=== PATIENT | female | born 1955 | race Caucasian/White ===

== ENCOUNTER 2016-09-10 21:38 | Emergency (ER) | payer MEDICARE, MEDICAID ==
[2016-09-10] MEDS ORDERED: SODIUM CHLORIDE 0.9% 1,000 ML IV ONE ×2 (22:04→22:06)
[2016-09-10] MEDS ORDERED: KETOROLAC 60 MG/2 ML VIAL IVP STA (22:04)
[2016-09-10] MEDS ORDERED: MORPHINE 2 MG/ML SYRINGE IVP STA (22:04)
[2016-09-10] MEDS ORDERED: MORPHINE 2 MG/ML SYRINGE ONE (22:06)
[2016-09-10] MEDS ORDERED: KETOROLAC 30 MG/ML VIAL ONE (22:06)
[2016-09-10 22:11] LABS: PH,URINE 5.5 PH (5.0-7.5)
[2016-09-10 22:16] LABS: BILIRUBIN,URINE MODERATE (NEGATIVE); UA CHARGE (STRIP ONLY) YES; UR CULTURE IF IND NOT INDICATED
--- NOTE | 2016-09-10 22:34 | ED Physician Documentation ---
History of Present Illness - Stated complaint Stated Complaint: ABD PX, BACK PX - Chief complaint Chief Complaint: Abd Pain - History obtained from History obtained from: Patient - History of Present Illness Timing: Today Pain level max: 8 Pain level now: 8 Quality: aching, dull pain Improved by: nothing Worsened by: nothing - Additonal information Additional information: Patient is a 61-year-old female who presents to the emergency department with right flank pain that radiates to the right groin. Has had several kidney stones in the past and states that this feels similar. Denies any fevers or vomiting. She has had to have lithotripsy in the past. Review of Systems Constitutional: denies: Fever Nose: denies: Rhinorrhea / runny nose, Congestion Cardiac: denies: Chest pain / pressure Respiratory: denies: Cough GI: reports: Nausea. 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 HEENT: Cochlear implant - Present Medications Home Medications: Ambulatory Orders Medication Instructions Recorded Confirmed Atorvastatin [Lipitor] 10 mg DAILY 09/05/15 09/10/16 Cholecalciferol [Vitamin D3] 1,000 unit DAILY 09/05/15 09/10/16 Cyclobenzaprine [Flexeril] 10 mg DAILY 09/05/15 09/10/16 Etodolac [Etodolac ER] 400 mg PO DAILY 09/05/15 09/10/16 Flaxseed Oil [[place]-3 Flaxseed Oil] 1,400 mg DAILY 09/05/15 09/10/16 Losartan [Cozaar] 25 mg DAILY 09/05/15 09/10/16 Multivit-Min/Iron Fum/Folic AC 1 tab DAILY 09/05/15 09/10/16 [Shfrf-Xabdgeg-Ikgscpwy Tablet] Omeprazole [PriLOSEC] 20 mg PO DAILY 09/05/15 09/10/16 Tofacitinib Citrate [Xeljanz] 5 mg PO BID 09/05/15 09/10/16 Hydrocodone/Acetaminophen 1 - 2 each PO Q6H PRN #10 tablet 09/10/16 [Hydrocodon-Acetaminophen 5-325] - Allergies Allergies/Adverse Reactions: Allergies Allergy/AdvReac Type Severity Reaction Status Date / Time acetaminophen Allergy Unknown Verified 09/10/16 21:45 [From Darvocet-N] meperidine HCl * Allergy Unknown Verified 09/10/16 21:45 [From Demerol] Penicillins Allergy Unknown Verified 09/10/16 21:45 povidone-iodine Allergy Unknown Verified 09/10/16 21:45 [From Betadine] propoxyphene napsylate * Allergy Unknown Verified 09/10/16 21:45 [From Darvocet-N] soap [From Betadine] Allergy Unknown Verified 09/10/16 21:45 Sulfa (Sulfonamide Allergy Unknown Verified 09/10/16 21:45 Antibiotics) bandaids Allergy Unknown Uncoded 09/10/16 21:45 dermabond Allergy Unknown Uncoded 09/10/16 21:45 surgical tape Allergy Unknown Uncoded 09/10/16 21:45 - Social History Does the pt smoke?: No Smoking Status: Never smoker Does the pt have substance abuse?: No - Immunizations Immunizations are current?: Yes - POLST Patient has POLST: No PD ED PE NORMAL - Vitals Vital signs reviewed: Yes - General General: Alert and oriented X 3, No acute distress - HEENT HEENT: Moist mucous membranes - Neck Neck: Supple, no meningeal sign - Cardiac Cardiac: RRR - Respiratory Respiratory: No respiratory distress, Clear bilaterally - Abdomen Abdomen: Normal bowel sounds, Soft, Non tender, Non distended - Back Back: No CVA TTP, No spinal TTP - Derm Derm: Warm and dry - Neuro Neuro: Alert and oriented X 3 - Psych Psych: Normal mood Results - Vitals Vitals: Vital Signs - 24 hr 09/10/16 09/10/16 21:43 22:45 Temperature 36.6 C Heart Rate 95 81 Respiratory 16 16 Rate Blood Pressure 155/101 H 145/79 H O2 Saturation 98 96 Oxygen O2 Source Room air - Labs Labs: Laboratory Tests 09/10/16 09/10/16 09/10/16 21:52 22:00 22:00 WBC 8.2 RBC 4.43 Hgb 13.2 Hct 39.2 MCV 88.5 MCH 29.8 MCHC 33.6 RDW 13.8 Plt Count 251 MPV 8.1 Neut # 4.6 Lymph # 2.8 [place] # 0.5 Eos # 0.2 Baso # 0.1 Absolute Nucleated RBC 0.00 Nucleated RBCs 0.0 Sodium 140 Potassium 4.2 Chloride 105 Carbon Dioxide 24 Anion Gap 11.0 BUN 21 H Creatinine 0.9 Estimated GFR (MDRD) 63 L Glucose 136 H Calcium 9.5 Total Bilirubin 0.8 AST 57 H ALT 68 H Alkaline Phosphatase 77 Total Protein 7.9 Albumin 4.3 Globulin 3.6 Albumin/Globulin Ratio 1.2 Lipase 36 Urine Color YELLOW Urine Clarity CLEAR Urine pH 5.5 Ur Specific [place] 1.025 Urine Protein NEGATIVE Urine Glucose (UA) NEGATIVE Urine Ketones NEGATIVE Urine Occult Blood NEGATIVE Urine Nitrite NEGATIVE Urine Bilirubin MODERATE H Urine Urobilinogen 0.2 (NORMAL) Ur Leukocyte Esterase NEGATIVE Ur Microscopic Review NOT INDICATED Urine Culture Comments NOT INDICATED - Rads (name of study) CT abd/pelvis Radiology: Prelim report reviewed, EMP read contemporaneously, See rad report ( Bilateral nonobstructing renal stones. No obstructing ureteral stones or renal mass. In particular, no acute inflammation. Fatty liver. No mass. Liver is enlarged. Gallbladder is surgically absent.) PD MEDICAL DECISION MAKING - ED course Complexity details: reviewed results, re-evaluated patient, considered differential, d/w patient ED course: Patient presents to the emergency department with right flank pain consistent with her prior history of ureteral stones. Pain is well controlled here. She is tolerating p.o. without difficulty. No UTI. No appendicitis. No acute findings on CT scan to explain her pain. We will continue supportive care and follow-up with her doctor. Patient counseled regarding signs and symptoms for which I believe and urgent re-evaluation would be necessary. Patient with good understanding of and agreement to plan and is comfortable going home at this time This document was made in part using voice recognition software. While efforts are made to proofread this document, sound alike and grammatical errors may occur. Departure - Departure Disposition: 01 Home, Self Care Clinical Impression: Flank pain Condition: Good Instructions: ED Flank Pain Uncertain Cause Follow-Up: your,doctor in 3 days [Other] Prescriptions: Hydrocodone/Acetaminophen [Hydrocodon-Acetaminophen 5-325] 1 - 2 each PO Q6H PRN #10 tablet PRN Reason: pain Comments: Return if you worsen. Your CT scan does not show a visible kidney stone at this time that would be causing your symptoms. Do not drink alcohol or drive while on narcotic pain medicine. Note that many narcotic pain relievers also contain tylenol/acetaminophen. Please ensure that your total dose of acetaminophen from all sources does not exceed 3 grams (3000mg) per day. You may constipated on this medication, take a stool softener such as "Colace" twice a day while you are on it. Also recommend a gzpw-exa-idmxnpv laxative such as senna or MiraLAX any day that you do not have a bowel movement. If you received narcotic pain medication in the emergency department, do not drive or operate machinery for the next 24 hours. Your blood pressure was elevated today on check in to the emergency department. This does not mean that you have hypertension, it is a common phenomenon to check into the emergency department and have elevated blood pressure. I recommend that you see your primary care physician within the week to have it rechecked when you're feeling better.
[2016-09-10 22:35] LABS: BASOPHILS # (AUTO) 0.1 10^3/uL (0.0-0.1); BASOPHILS % (AUTO) 0.9 %; EOSINOPHILS # (AUTO) 0.2 10^3/uL (0.0-0.7); EOSINOPHILS % (AUTO) 2.5 %; HCT - HEMATOCRIT 39.2 % (37.0-47.0); HGB - HEMOGLOBIN 13.2 g/dL (12.0-16.0); LYMPHOCYTES # (AUTO) 2.8 10^3/uL (1.5-3.5); LYMPHOCYTES % (AUTO) 33.5 %; MEAN CORPUSCULAR HEMOGLOBIN 29.8 pg (27.0-31.0); MEAN CORPUSCULAR HGB CONC 33.6 g/dL (32.0-36.0); MEAN CORPUSCULAR VOLUME 88.5 fL (81.0-99.0); MEAN PLATELET VOLUME 8.1 fL (7.9-10.8); MONOCYTES # (AUTO) 0.5 10^3/uL (0.0-1.0); MONOCYTES % (AUTO) 6.5 %; NEUTROPHILS # (AUTO) 4.6 10^3/uL (1.5-6.6); NEUTROPHILS % (AUTO) 56.6 %; RED BLOOD COUNT 4.43 10^6/uL (4.20-5.40); RED CELL DISTRIBUTION WIDTH 13.8 % (12.0-15.0); UNCORRECTED WHITE BLOOD COUNT 8.2 x10^3/uL; WHITE BLOOD COUNT 8.2 x10^3/uL (4.8-10.8)
[2016-09-10 22:46] LABS: ALBUMIN/GLOBULIN RATIO 1.2 (1.0-2.2); BILIRUBIN,TOTAL 0.8 mg/dL (0.2-1.0); CALCIUM 9.5 mg/dL (8.5-10.3); CREATININE 0.9 mg/dL (0.4-1.0); POTASSIUM 4.2 mmol/L (3.5-5.0); TOTAL PROTEIN 7.9 g/dL (6.7-8.2)
--- NOTE | 2016-09-10 22:56 | CT Preliminary Report ---
Exam: CT Abdomen/Pelvis W/O IMPRESSION: 1. Bilateral nonobstructing renal stones. No obstructing ureteral stones or renal mass. 2. In particular without acute inflammation. 3. Fatty liver. No mass. Liver is enlarged. 4. Gallbladder is surgically absent. [facility] SITE ID: [id number]
[2016-09-10 23:41] VITALS: BP 135/88
--- NOTE | 2016-09-11 00:11 | CT Report ---
EXAM: CT ABDOMEN AND PELVIS (CT KUB) EXAM DATE: 09/10/2016 10:22 PM. CLINICAL HISTORY: RIght flank pain. History of renal stones. COMPARISONS: None. TECHNIQUE: Routine axial helical CT imaging was performed through the abdomen and pelvis without IV c ontrast. Reconstructions: Coronal and sagittal. In accordance with CT protocol optimization, one or more of the following dose reduction techniques w ere utilized for this exam: automated exposure control, adjustment of mA and/or KV based on patient s ize, or use of iterative reconstructive technique. FINDINGS: Lung Bases: Normal. Right Kidney/Ureter: Greater than 5 nonobstructing right-sided renal stones with the largest in the i nferior kidney measuring 7 mm. No contour deforming renal mass, hydronephrosis, or obstructing ureter al stone. Left Kidney/Ureter: Greater than 3 nonobstructing left-sided renal stones with the largest in the inf erior left kidney measuring 1.2 cm and 0.3 cm respectively. No contour deforming left renal mass, hyd ronephrosis or obstructing ureteral stone. Other Solid Organs: Fatty infiltration of the enlarged liver with geographic areas of more normal att enuation in the posterior left liver lobe. No mass or intrahepatic bile duct dilation is noted. Gallb ladder is surgically absent. Normal adrenal glands, spleen and pancreas. Gallbladder/Bile Ducts: See above. Peritoneal Cavity: No free fluid, free air or florceita adenopathy. Bowel is grossly unremarkable. There are multiple diverticula seen which most severely affect the sigmoid colon. No wall thickening or ad jacent inflammation seen. No obstruction noted. Pelvic Organs: No bladder stones or bladder wall thickening. The uterus is absent. 3.3 cm low-density cystic structure in the right ovary. Visualized portions of the left ovary are normal. No pelvic mas s or adenopathy. Vasculature: Unremarkable. Other: Patient is osteopenic. No osteoblastic or osteolytic lesions. Large cystic structures are seen at the neural foramina possibly due to Tarlov's cyst noted at S1 and S2. IMPRESSION: 1. Bilateral nonobstructing renal stones. No obstructing ureteral stones or renal mass. 2. Diverticula without acute inflammation. 3. Fatty liver. No mass. Liver is enlarged. 4. Gallbladder is surgically absent. [facility] Referring Provider Line: [phone] SITE ID: [id number]
== END 2016-09-10 23:40 | disposition home or self-care (01) ==
LOC: ED 21:38
DX: R10.30 Lower abdominal pain, unspecified (principal); R11.0 Nausea; N20.0 Calculus of kidney; Z87.442 Personal history of urinary calculi; I10 Essential (primary) hypertension; M79.7 Fibromyalgia; M06.9 Rheumatoid arthritis, unspecified
CPT/HCPCS: 36415; 74176; 80053; 81001; 81003; 83690; 85025; 87086; 96361; 96374; 96375; 99284

== ENCOUNTER 2018-03-15 19:43 | Emergency (ER) | payer MEDICARE, MEDICAID ==
--- NOTE | 2018-03-15 20:52 | ED Physician Documentation ---
History of Present Illness - Stated complaint Stated Complaint: NOT FEELING WELL - Chief complaint Chief Complaint: Abd Pain - History obtained from History obtained from: Patient, Other (uses sign language; World[employer] used to interpret) - History of Present Illness Timing: How many weeks ago (1) Improved by: no ameliorating factors Worsened by: no exacerbating factors - Additonal information Additional information: c/o 1 week of cloudy urine but no urinary frequency or urgency. she also feels "run down", fatigued. checks blood sugars daily, was 134 today. Review of Systems Constitutional: reports: Fever (yesterday "between 100 and 101"), Fatigue. denies: Chills, Myalgias, Sweats Cardiac: denies: Chest pain / pressure Respiratory: denies: Dyspnea, Cough GI: reports: Abdominal Pain (had brief episode RLQ/right flank pain yesterday, but this resolved) : reports: Other (cloudy urine). 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 HEENT: Cochlear implant - Present Medications Home Medications: Ambulatory Orders Medication Instructions Recorded Confirmed Atorvastatin [Lipitor] 10 mg DAILY 09/05/15 09/10/16 Cholecalciferol [Vitamin D3] 1,000 unit DAILY 09/05/15 09/10/16 Cyclobenzaprine [Flexeril] 10 mg DAILY 09/05/15 09/10/16 Etodolac [Etodolac ER] 400 mg PO DAILY 09/05/15 09/10/16 Flaxseed Oil [[place]-3 Flaxseed Oil] 1,400 mg DAILY 09/05/15 09/10/16 Losartan [Cozaar] 25 mg DAILY 09/05/15 09/10/16 Multivit-Min/Iron Fum/Folic AC 1 tab DAILY 09/05/15 09/10/16 [Gdhdz-Jlrowef-Wdypqlhn Tablet] Omeprazole [PriLOSEC] 20 mg PO DAILY 09/05/15 09/10/16 Tofacitinib Citrate [Xeljanz] 5 mg PO BID 05/05/16 05/11/17 Hydrocodone/Acetaminophen 1 - 2 each PO Q6H PRN #10 tablet 09/10/16 [Hydrocodon-Acetaminophen 5-325] Ciprofloxacin HCl [Cipro] 500 mg PO BID #14 tablet 03/15/18 - Allergies Allergies/Adverse Reactions: Allergies Allergy/AdvReac Type Severity Reaction Status Date / Time acetaminophen Allergy Unknown Verified 09/10/16 21:45 [From Darvocet-N] meperidine HCl * Allergy Unknown Verified 09/10/16 21:45 [From Demerol] Penicillins Allergy Unknown Verified 09/10/16 21:45 povidone-iodine Allergy Unknown Verified 09/10/16 21:45 [From Betadine] propoxyphene napsylate * Allergy Unknown Verified 09/10/16 21:45 [From Darvocet-N] soap [From Betadine] Allergy Unknown Verified 09/10/16 21:45 Sulfa (Sulfonamide Allergy Unknown Verified 09/10/16 21:45 Antibiotics) bandaids Allergy Unknown Uncoded 09/10/16 21:45 dermabond Allergy Unknown Uncoded 09/10/16 21:45 surgical tape Allergy Unknown Uncoded 09/10/16 21:45 - Social History Does the pt smoke?: No Smoking Status: Never smoker Does the pt have substance abuse?: No - Immunizations Immunizations are current?: Yes - POLST Patient has POLST: No PD ED PE NORMAL - Vitals Vital signs reviewed: Yes - General General: Alert and oriented X 3, No acute distress, Well developed/nourished - HEENT HEENT: Moist mucous membranes - Cardiac Cardiac: RRR, No murmur - Respiratory Respiratory: No respiratory distress, Clear bilaterally - Abdomen Abdomen: Soft, Non tender, Non distended - Back Back: No CVA TTP - Extremities Extremities: No edema Results - Vitals Vitals: Vital Signs - 24 hr 03/15/18 03/15/18 19:55 22:38 Temperature 37.1 C Heart Rate 100 87 Respiratory 18 16 Rate Blood Pressure 163/89 H 145/77 H O2 Saturation 97 98 Oxygen O2 Source Room air - Labs Labs: Laboratory Tests 03/15/18 03/15/18 03/15/18 20:45 21:45 21:45 WBC 8.0 RBC 4.14 L Hgb 12.5 Hct 37.2 MCV 89.9 MCH 30.2 MCHC 33.6 RDW 13.1 Plt Count 323 MPV 6.9 L Neut # (Auto) 4.9 Lymph # (Auto) 2.2 [place] # (Auto) 0.5 Eos # (Auto) 0.2 Baso # (Auto) 0.1 Absolute Nucleated RBC 0.00 Nucleated RBC % 0.1 Sodium 140 Potassium 3.8 Chloride 105 Carbon Dioxide 24 Anion Gap 11.0 BUN 21 H Creatinine 0.8 Estimated GFR (MDRD) 72 L Glucose 194 H Calcium 9.2 Total Bilirubin 0.5 AST 21 ALT 24 Alkaline Phosphatase 95 Total Protein 7.9 Albumin 3.7 Globulin 4.2 Albumin/Globulin Ratio 0.9 L Lipase 40 Urine Color LT. YELLOW Urine Clarity HAZY Urine pH 6.0 Ur Specific [place] 1.020 Urine Protein NEGATIVE Urine Glucose (UA) NEGATIVE Urine Ketones NEGATIVE Urine Occult Blood TRACE-LYSE Urine Nitrite NEGATIVE Urine Bilirubin NEGATIVE Urine Urobilinogen 0.2 (NORMAL) Ur Leukocyte Esterase MODERATE H Urine RBC 0-5 Urine WBC >25 H Urine WBC Clumps PRESENT Ur Squamous Epith Cells RARE Squamous Urine Bacteria Rare Ur Microscopic Review INDICATED Urine Culture Comments INDICATED PD MEDICAL DECISION MAKING - ED course Complexity details: reviewed results, re-evaluated patient, considered differential, d/w patient Departure - Departure Disposition: 01 Home, Self Care Clinical Impression: Urinary tract infection Condition: Good Instructions: ED UTI Cystitis Female Follow-Up: Provider,Other [Primary Care Provider] - Prescriptions: Ciprofloxacin HCl [Cipro] 500 mg PO BID #14 tablet Discharge Date/Time: 03/15/18 22:39
[2018-03-15 20:55] LABS: GLUCOSE, URINE (UA) NEGATIVE (NEGATIVE); KETONES,URINE (UA) NEGATIVE (NEGATIVE); LEUKOCYTE ESTERASE, URINE MODERATE (NEGATIVE); NITRITE,URINE NEGATIVE (NEGATIVE); OCCULT BLOOD,URINE TRACE-LYSE (NEGATIVE); PROTEIN,URINE NEGATIVE (NEGATIVE); UROBILINOGEN,URINE 0.2 (NORMAL) E.U./dL (NORMAL)
[2018-03-15 21:16] LABS: BILIRUBIN,URINE NEGATIVE (NEGATIVE); CLARITY,URINE HAZY (CLEAR); ICTOTEST,URINE NEGATIVE
[2018-03-15 21:17] LABS: BACTERIA,URINE Rare /HPF (None Seen); RBC,URINE 0-5 /HPF (0-5); SQUAMOUS EPITHELIAL CELL,UR RARE Squamous (<= Few); WBC CLUMPS,URINE PRESENT
[2018-03-15 22:02] LABS: BASOPHILS # (AUTO) 0.1 10^3/uL (0.0-0.1); BASOPHILS % (AUTO) 0.9 %; EOSINOPHILS # (AUTO) 0.2 10^3/uL (0.0-0.7); EOSINOPHILS % (AUTO) 2.7 %; HGB - HEMOGLOBIN 12.5 g/dL (12.0-16.0); LYMPHOCYTES # (AUTO) 2.2 10^3/uL (1.5-3.5); LYMPHOCYTES % (AUTO) 28.2 %; MEAN CORPUSCULAR HEMOGLOBIN 30.2 pg (27.0-31.0); MEAN CORPUSCULAR HGB CONC 33.6 g/dL (32.0-36.0); MEAN CORPUSCULAR VOLUME 89.9 fL (81.0-99.0); MEAN PLATELET VOLUME 6.9 fL (7.9-10.8); MONOCYTES # (AUTO) 0.5 10^3/uL (0.0-1.0); MONOCYTES % (AUTO) 6.2 %; NEUTROPHILS # (AUTO) 4.9 10^3/uL (1.5-6.6); PLT - PLATELET COUNT 323 10^3/uL (130-450); RED BLOOD COUNT 4.14 10^6/uL (4.20-5.40); RED CELL DISTRIBUTION WIDTH 13.1 % (12.0-15.0)
[2018-03-15 22:16] LABS: ALBUMIN 3.7 g/dL (3.2-5.5); ALBUMIN/GLOBULIN RATIO 0.9 (1.0-2.2); BILIRUBIN,TOTAL 0.5 mg/dL (0.2-1.0); CALCIUM 9.2 mg/dL (8.5-10.3); CREATININE 0.8 mg/dL (0.4-1.0); TOTAL PROTEIN 7.9 g/dL (6.7-8.2)
[2018-03-15] MEDS ORDERED: CIPROFLOXACIN 250 MG TABLET PO STA (22:31)
[2018-03-15 22:39] VITALS: BP 145/77
== END 2018-03-15 22:39 | disposition home or self-care (01) ==
LOC: ED 19:43
DX: N39.0 Urinary tract infection, site not specified (principal); I10 Essential (primary) hypertension; E78.00 Pure hypercholesterolemia, unspecified; M79.7 Fibromyalgia; M06.9 Rheumatoid arthritis, unspecified; Z96.659 Presence of unspecified artificial knee joint
CPT/HCPCS: 36415; 80053; 81001; 83690; 85025; 87086; 99283; A9270; 81003

== ENCOUNTER 2018-04-11 12:24 | Emergency (ER) | payer MEDICARE, MEDICAID ==
--- NOTE | 2018-04-11 13:30 | ED Physician Documentation ---
PD HPI FEMALE - Stated complaint Stated Complaint: SIDE PX - Chief complaint Chief Complaint: UTI - History obtained from History obtained from: Patient, Other (translation video (ASL)) - History of Present Illness Timing - onset: How many days ago (4-5 days of lower abd and some right flank pains. Has had UTI with these symptoms. Had been treated with abx few weeks ago and was improved but felt symptoms again within a week off the abx. Seen in office 5 days ago and Rx with Macrobid, and has not had any improvement with that.) Timing - duration: Days Timing - details: Gradual onset, Waxing and waning Associated symptoms: Abdominal pain, Back pain (right flank and side), Dysuria, Urinary frequency. 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 HEENT: Cochlear implant - Present Medications Home Medications: Ambulatory Orders Medication Instructions Recorded Confirmed Atorvastatin [Lipitor] 10 mg DAILY 09/05/15 09/10/16 Cholecalciferol [Vitamin D3] 1,000 unit DAILY 09/05/15 09/10/16 Cyclobenzaprine [Flexeril] 10 mg DAILY 09/05/15 09/10/16 Etodolac [Etodolac ER] 400 mg PO DAILY 09/05/15 09/10/16 Flaxseed Oil [[place]-3 Flaxseed Oil] 1,400 mg DAILY 09/05/15 09/10/16 Losartan [Cozaar] 25 mg DAILY 09/05/15 09/10/16 Multivit-Min/Iron Fum/Folic AC 1 tab DAILY 09/05/15 09/10/16 [Qcoud-Vmpubzn-Mwelydfq Tablet] Omeprazole [PriLOSEC] 20 mg PO DAILY 09/05/15 09/10/16 Hydrocodone/Acetaminophen 1 - 2 each PO Q6H PRN #10 tablet 09/10/16 [Hydrocodon-Acetaminophen 5-325] Doxycycline Hyclate 100 mg PO BID #20 capsule 04/11/18 Phenazopyridine HCl [Pyridium] 200 mg PO TID PRN #6 tablet 04/11/18 - Allergies Allergies/Adverse Reactions: Allergies Allergy/AdvReac Type Severity Reaction Status Date / Time acetaminophen Allergy Unknown Verified 04/11/18 13:24 [From Darvocet-N] meperidine HCl * Allergy Unknown Verified 04/11/18 13:24 [From Demerol] Penicillins Allergy Unknown Verified 04/11/18 13:24 povidone-iodine Allergy Unknown Verified 04/11/18 13:24 [From Betadine] propoxyphene napsylate * Allergy Unknown Verified 04/11/18 13:24 [From Darvocet-N] soap [From Betadine] Allergy Unknown Verified 04/11/18 13:24 Sulfa (Sulfonamide Allergy Unknown Verified 04/11/18 13:24 Antibiotics) bandaids Allergy Unknown Uncoded 04/11/18 13:24 dermabond Allergy Unknown Uncoded 04/11/18 13:24 surgical tape Allergy Unknown Uncoded 04/11/18 13:24 - Social History Does the pt smoke?: No Smoking Status: Never smoker Does the pt drink ETOH?: No Does the pt have substance abuse?: No - Immunizations Immunizations are current?: Yes - POLST Patient has POLST: No PD ED PE NORMAL - Vitals Vital signs reviewed: Yes - General General: Alert and oriented X 3, No acute distress, Well developed/nourished - Cardiac Cardiac: RRR, No murmur - Respiratory Respiratory: Clear bilaterally - Abdomen Abdomen: Soft, Non tender - Female Female : Deferred - Rectal Rectal: Deferred - Back Back: No CVA TTP Results - Vitals Vitals: Oxygen O2 Source Room air - Labs Labs: Microbiology 04/11/18 13:10 Urine Culture - Final Urine,Clean Catch NO AEROBIC GROWTH AT 24 HOURS Laboratory Tests 04/11/18 13:10 Urine Color YELLOW Urine Clarity CLEAR Urine pH 5.5 Ur Specific [place] 1.020 Urine Protein NEGATIVE Urine Glucose (UA) NEGATIVE Urine Ketones NEGATIVE Urine Occult Blood NEGATIVE Urine Nitrite NEGATIVE Urine Bilirubin NEGATIVE Urine Urobilinogen 0.2 (NORMAL) Ur Leukocyte Esterase TRACE H Urine RBC 0-5 Urine WBC 6-10 H Ur Squamous Epith Cells RARE Squamous Urine Crystals 0-2 Calcium Oxalate Urine Bacteria None Seen Ur Microscopic Review INDICATED Urine Culture Comments INDICATED PD MEDICAL DECISION MAKING - ED course Complexity details: reviewed results (her prior culture result was a form of staph, sensitive to most everything, so should have cleared. Not improving with Macrobid currently. Is sensitive to tetracycline on report, so will go with Doxycycline, more staph focused. ), considered differential, d/w patient Departure - Departure Disposition: 01 Home, Self Care Clinical Impression: UTI (urinary tract infection) Qualifiers: Urinary tract infection type: acute cystitis Hematuria presence: without hematuria Qualified Code(s): N30.00 - Acute cystitis without hematuria Condition: Stable Record reviewed to determine appropriate education?: Yes Instructions: ED UTI Cystitis Female Prescriptions: Doxycycline Hyclate 100 mg PO BID #20 capsule Phenazopyridine HCl [Pyridium] 200 mg PO TID PRN #6 tablet PRN Reason: dysuria Comments: Drink lots of fluids. Stop the current antibiotic. Change to doxycycline twice daily for 10 days. You can use phenazopyridine every 6 hours if needed for the discomfort of urination. Recheck if not improved over the next few days. Follow-up with your primary care in about 2 weeks to ensure your urine is all clear at that time. Discharge Date/Time: 04/11/18 15:09
[2018-04-11 14:11] LABS: GLUCOSE, URINE (UA) NEGATIVE (NEGATIVE); KETONES,URINE (UA) NEGATIVE (NEGATIVE); LEUKOCYTE ESTERASE, URINE TRACE (NEGATIVE); NITRITE,URINE NEGATIVE (NEGATIVE); OCCULT BLOOD,URINE NEGATIVE (NEGATIVE); PH,URINE 5.5 PH (5.0-7.5); PROTEIN,URINE NEGATIVE (NEGATIVE); UROBILINOGEN,URINE 0.2 (NORMAL) E.U./dL (NORMAL)
[2018-04-11 14:14] LABS: BILIRUBIN,URINE NEGATIVE (NEGATIVE); CLARITY,URINE CLEAR (CLEAR); ICTOTEST,URINE NEGATIVE
[2018-04-11 14:20] LABS: BACTERIA,URINE None Seen /HPF (None Seen); CRYSTALS,URINE 0-2 Calcium Oxalate /LPF; RBC,URINE 0-5 /HPF (0-5); SQUAMOUS EPITHELIAL CELL,UR RARE Squamous (<= Few)
[2018-04-11] MEDS ORDERED: PHENAZOPYRIDINE 100 MG TABLET PO STA (14:36)
[2018-04-11] MEDS ORDERED: DOXYCYCLINE 100 MG TABLET PO STA (14:38)
[2018-04-11 15:07] VITALS: BP 142/77
== END 2018-04-11 15:09 | disposition home or self-care (01) ==
LOC: ED 12:24
DX: N30.00 Acute cystitis without hematuria (principal); I10 Essential (primary) hypertension; E78.00 Pure hypercholesterolemia, unspecified; Z96.659 Presence of unspecified artificial knee joint
CPT/HCPCS: 81001; 87086; 99283; A9270; 81003

== ENCOUNTER 2018-04-16 13:53 | Emergency (ER) | payer MEDICARE, MEDICAID ==
[2018-04-16] MEDS ORDERED: BUPIVACAINE 0.5% PF 10 ML VIAL SUBQ STA (14:43)
[2018-04-16] MEDS ORDERED: TRIAMCINOLONE 40 MG/ML VIAL IM STA (14:43)
--- NOTE | 2018-04-16 14:46 | ED Physician Documentation ---
PD HPI BACK PAIN - Stated complaint Stated Complaint: BACK PX - Chief complaint Chief Complaint: Back Pain - History obtained from History obtained from: Patient, Friend, Other (window display designer) - History of Present Illness Timing - onset: How many days ago (3) Timing - duration: Days (3) Timing - details: Gradual onset, Still present, Waxing and waning, Still present in ED Location: Mid, Left Quality: Pain, Spasm, Sharp, Similar to prior episodes Associated symptoms: No: Fever, Weakness, Numbness, Incontinent of urine, Unable to urinate, Hematuria, Incontinent of stool Improves with: Rest, Position Worsened by: Movement Similar symptoms before: Diagnosis (back spasm) Recently seen: Emergency Dept - Additional information Additional information: 62-year-old female has developed left flank pain similar to what she has had previously with back spasm. She does have some levoscoliosis to her spine and she has pain at the upper end of her lumbar spine on the left side that she has in waves of pain. She has had this for more than 10 years and she has periodically required treatment. She indicates to the sign meat hostess that in trigger point injections have improved this and the plain muscle relaxant has not helped with this. She does not otherwise feel ill and denies any current illness. Review of Systems Constitutional: denies: Fever Eyes: denies: Decreased vision Ears: denies: Ear pain Nose: denies: Rhinorrhea / runny nose, Congestion Throat: denies: Sore throat Cardiac: denies: Chest pain / pressure, Palpitations Respiratory: denies: Dyspnea, Cough GI: denies: Abdominal Pain, Nausea, Vomiting : denies: Dysuria, Frequency Skin: denies: Rash Musculoskeletal: reports: Back pain. denies: Neck pain, Extremity pain PD PAST MEDICAL HISTORY - Past Medical History Cardiovascular: Hypertension, High cholesterol Endocrine/Autoimmune: Type 2 diabetes : Kidney stones Psych: None Musculoskeletal: Osteoarthritis, Fibromyalgia, Rheumatoid arthritis Other Past Medical History: Deaf - Past Surgical History Past Surgical History: Yes General: Appendectomy Ortho: Knee replacement /BODY LINER: section HEENT: Cochlear implant - Present Medications Home Medications: Ambulatory Orders Medication Instructions Recorded Confirmed Atorvastatin [Lipitor] 10 mg DAILY 09/05/15 09/10/16 Cholecalciferol [Vitamin D3] 1,000 unit DAILY 09/05/15 09/10/16 Cyclobenzaprine [Flexeril] 10 mg DAILY 09/05/15 09/10/16 Etodolac [Etodolac ER] 400 mg PO DAILY 09/05/15 09/10/16 Flaxseed Oil [[place]-3 Flaxseed Oil] 1,400 mg DAILY 09/05/15 09/10/16 Losartan [Cozaar] 25 mg DAILY 09/05/15 09/10/16 Multivit-Min/Iron Fum/Folic AC 1 tab DAILY 09/05/15 09/10/16 [Cplxk-Nmakoqh-Vggqwnug Tablet] Omeprazole [PriLOSEC] 20 mg PO DAILY 09/05/15 09/10/16 Cyclobenzaprine [Flexeril] 10 mg PO TID PRN #20 tablet 04/16/18 Hydrocodone/Acetaminophen 1 - 2 each PO Q6H PRN #14 tablet 04/16/18 [Hydrocodon-Acetaminophen 5-325] - Allergies Allergies/Adverse Reactions: Allergies Allergy/AdvReac Type Severity Reaction Status Date / Time acetaminophen Allergy Unknown Verified 04/16/18 14:05 [From Darvocet-N] meperidine HCl * Allergy Unknown Verified 04/16/18 14:05 [From Demerol] Penicillins Allergy Unknown Verified 04/16/18 14:05 povidone-iodine Allergy Unknown Verified 04/16/18 14:05 [From Betadine] propoxyphene napsylate * Allergy Unknown Verified 04/16/18 14:05 [From Darvocet-N] soap [From Betadine] Allergy Unknown Verified 04/16/18 14:05 Sulfa (Sulfonamide Allergy Unknown Verified 04/16/18 14:05 Antibiotics) bandaids Allergy Unknown Uncoded 04/16/18 14:05 dermabond Allergy Unknown Uncoded 04/16/18 14:05 surgical tape Allergy Unknown Uncoded 04/16/18 14:05 - Social History Does the pt smoke?: No Smoking Status: Never smoker Does the pt drink ETOH?: No Does the pt have substance abuse?: No - Immunizations Immunizations are current?: Yes - POLST Patient has POLST: No PD ED PE NORMAL - Vitals Vital signs reviewed: Yes (tachy and hypertensive ) - General General: No acute distress, Well developed/nourished - HEENT HEENT: Atraumatic, PERRL, EOMI - Neck Neck: Supple, no meningeal sign, No bony TTP - Cardiac Cardiac: RRR, No murmur - Respiratory Respiratory: No respiratory distress, Clear bilaterally - Abdomen Abdomen: Soft, Non tender - Back Back: No CVA TTP, No spinal TTP, Other (There is specific tenderness to the upper lumbar or lower thoracic spine at the T11-L1 area in the paraspinous muscles to a specific area. The surrounding area appears red from a heating pack. ) - Derm Derm: Normal color, Warm and dry, No rash - Extremities Extremities: No deformity, No edema - Neuro Neuro: No motor deficit, No sensory deficit, Other (The patient is deaf and ronald ds lips and signs well ) Eye Opening: Spontaneous Motor: Obeys Commands Verbal: Oriented GCS Score: 15 - Psych Psych: Normal mood, Normal affect Results - Vitals Vitals: Vital Signs - 24 hr 04/16/18 14:00 Temperature 37 C Heart Rate 102 H Respiratory 12 Rate Blood Pressure 138/80 H O2 Saturation 96 Oxygen O2 Source Room air Procedures - General procedure General procedure: Trigger point injection:. After preparation of the skin with chlorhexidine the specific area of spasm is identified by palpation and the area is injected and fanned process with 6 mL's of a mixture of 9 mL's of bupivacaine and 1 mL of Kenalog 40 mg/mL. The injection provides relief to the patient. PD MEDICAL DECISION MAKING - ED course Complexity details: reviewed old records, considered differential, d/w patient, d/w family ED course: 62-year-old female with back spasm is given an injection of Kenalog and bupivacaine as a trigger point injection to the site of pain with some relief to the patient. I discussed with her through the sign meat hostess that I recommend not using the heating pack and I will prescribe some hydrocodone and Flexeril for the patient to use as needed. Departure - Departure Disposition: 01 Home, Self Care Clinical Impression: Back spasm Condition: Stable Instructions: ED Spasm Back No Trauma Follow-Up: Your, doctor [Other] Prescriptions: Cyclobenzaprine [Flexeril] 10 mg PO TID PRN #20 tablet PRN Reason: Spasms Hydrocodone/Acetaminophen [Hydrocodon-Acetaminophen 5-325] 1 - 2 each PO Q6H PRN #14 tablet PRN Reason: pain
[2018-04-16 15:15] VITALS: BP 151/90
== END 2018-04-16 15:16 | disposition home or self-care (01) ==
LOC: ED 13:53
DX: M62.830 Muscle spasm of back (principal); E11.9 Type 2 diabetes mellitus without complications; E78.00 Pure hypercholesterolemia, unspecified; I10 Essential (primary) hypertension; Z96.659 Presence of unspecified artificial knee joint; M79.7 Fibromyalgia; M06.9 Rheumatoid arthritis, unspecified
CPT/HCPCS: 20552; 99283

== ENCOUNTER 2018-07-06 13:17 | Emergency (ER) | payer MEDICARE, MEDICAID ==
[2018-07-06 13:56] VITALS: BP 143/81
[2018-07-06] MEDS ORDERED: ERYTHROMYCIN OPHTH OINT 1 GM TUBE TOP STA (14:43)
--- NOTE | 2018-07-06 14:45 | ED Physician Documentation ---
PD HPI OPHTHO - Stated complaint Stated Complaint: R EYE SWELLING - Chief complaint Chief Complaint: Heent - Additional information Additional information: 62-year-old female presents the emergency department with 1 day of right eye redness. The patient awoke this morning with her eyes matted shut with a gritty feeling and discharge. The patient denies any vision changes. The patient denies pain with ocular motion. The patient denies eyelid swelling. The patient denies headache or nausea. The patient denies any consensual photophobia or recent trauma or injury. No triggering factors. No relieving factors. The patient does not use contacts. Patient device floaters, flashes of light or focal vision loss. Review of Systems Constitutional: denies: Fever, Chills Eyes: reports: Discharge, Irritation. 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: section HEENT: Cochlear implant - Present Medications Home Medications: Ambulatory Orders Medication Instructions Recorded Confirmed Atorvastatin [Lipitor] 10 mg DAILY 09/05/15 09/10/16 Cholecalciferol [Vitamin D3] 1,000 unit DAILY 09/05/15 09/10/16 Cyclobenzaprine [Flexeril] 10 mg DAILY 09/05/15 09/10/16 Etodolac [Etodolac ER] 400 mg PO DAILY 09/05/15 09/10/16 Flaxseed Oil [[place]-3 Flaxseed Oil] 1,400 mg DAILY 09/05/15 09/10/16 Losartan [Cozaar] 25 mg DAILY 09/05/15 09/10/16 Multivit-Min/Iron Fum/Folic AC 1 tab DAILY 09/05/15 09/10/16 [Irfej-Pecocit-Orjuclxc Tablet] Omeprazole [PriLOSEC] 20 mg PO DAILY 09/05/15 09/10/16 Cyclobenzaprine [Flexeril] 10 mg PO TID PRN #20 tablet 04/16/18 Hydrocodone/Acetaminophen 1 - 2 each PO Q6H PRN #14 tablet 04/16/18 [Hydrocodon-Acetaminophen 5-325] Erythromycin Base [Erythromycin 1 gm OP TID 7 Days #1 oint...g. 07/06/18 Ophthalmic Ointment] - Allergies Allergies/Adverse Reactions: Allergies Allergy/AdvReac Type Severity Reaction Status Date / Time acetaminophen Allergy Unknown Verified 07/06/18 13:55 [From Darvocet-N] meperidine HCl * Allergy Unknown Verified 07/06/18 13:55 [From Demerol] Penicillins Allergy Unknown Verified 07/06/18 13:55 povidone-iodine Allergy Unknown Verified 07/06/18 13:55 [From Betadine] propoxyphene napsylate * Allergy Unknown Verified 07/06/18 13:55 [From Darvocet-N] soap [From Betadine] Allergy Unknown Verified 07/06/18 13:55 Sulfa (Sulfonamide Allergy Unknown Verified 07/06/18 13:55 Antibiotics) bandaids Allergy Unknown Uncoded 07/06/18 13:55 dermabond Allergy Unknown Uncoded 07/06/18 13:55 surgical tape Allergy Unknown Uncoded 07/06/18 13:55 - Social History Does the pt smoke?: No Smoking Status: Never smoker Does the pt drink ETOH?: No Does the pt have substance abuse?: No - Immunizations Immunizations are current?: Yes - POLST Patient has POLST: No PD ED PE NORMAL - General General: Alert and oriented X 3, No acute distress - Derm Derm: Normal color - Neuro Neuro: Alert and oriented X 3, Normal speech - Psych Psych: Normal mood PD ED PE EXPANDED - Eyes Eyes: PERRL, Normal accommodation, EOMI, Injected conj/sclera (The patient has some mild injection of the conjunctiva with a clear discharge.), Anterior chambers clear. No: Exudate, Conj/sclera FB, Subconj hemorrhage, Scleral icterus, Corneal FB, Corneal abrasion, Corneal ulcer, Fluorescein uptake, Hyphema, Ant chamber cells/flare, Temp arteries nontender Results - Vitals Vitals: Vital Signs - 24 hr 07/06/18 13:53 Temperature 36.1 C L Heart Rate 105 H Respiratory 14 Rate Blood Pressure 143/81 H O2 Saturation 97 Oxygen O2 Source Room air PD MEDICAL DECISION MAKING - ED course ED course: The patient will be treated for an infectious cause of conjunctivitis. Presently the patient appears appropriate for discharge and any ongoing outpatient management. I recommended follow-up with ophthalmology, especially if her symptoms are not improving. I discussed warning signs and recommended returning to the emergency department immediately for any worsening or any concerns Departure - Departure Disposition: 01 Home, Self Care Clinical Impression: Conjunctivitis Qualifiers: Conjunctivitis type: acute Acute conjunctivitis type: unspecified Laterality: unspecified laterality Qualified Code(s): H10.30 - Unspecified acute conjunctivitis, unspecified eye Condition: Good Instructions: Conjunctivitis Follow-Up: [facility] [Provider Group] (Please call to schedule a follow-up appointment) Prescriptions: Erythromycin Base [Erythromycin Ophthalmic Ointment] 1 gm OP TID 7 Days #1 oint...g. Comments: Please return for any worsening or any concerns
== END 2018-07-06 15:03 | disposition home or self-care (01) ==
LOC: ED 13:17
DX: H10.89 Other conjunctivitis (principal); I10 Essential (primary) hypertension; E11.9 Type 2 diabetes mellitus without complications
CPT/HCPCS: 99283; J3490

== ENCOUNTER 2019-01-09 13:21 | Emergency (ER) | payer MEDICARE, MEDICAID ==
--- NOTE | 2019-01-09 16:11 | ED Physician Documentation ---
PD HPI BACK PAIN - Stated complaint Stated Complaint: BACK PX - Chief complaint Chief Complaint: Back Pain - History obtained from History obtained from: Patient, Family - History of Present Illness Timing - onset: How many weeks ago (3) Timing - duration: Weeks (3) Timing - details: Gradual onset, Still present, Waxing and waning Pain level max: 10 Pain level now: 5 Location: Upper, Left Quality: Pain, Spasm, Sharp, Similar to prior episodes Associated symptoms: No: Fever, Weakness, Numbness, Incontinent of urine, Unable to urinate, Hematuria, Incontinent of stool Improves with: Rest, Ice, Position, Meds Worsened by: Movement, Lifting Contributing factors: Lifting Similar symptoms before: Diagnosis (rhomboid muscle spasm) Recently seen: Not recently seen - Additional information Additional information: 63-year-old deaf woman presents to the emergency department with pain to her left posterior chest that is coming in spasms similar to what she has had previously. She has had symptoms with any type of movement with cleaning and moving over the past 3 weeks and she helped lift a heavy chest yesterday and this has made the pain substantially worse. She is not having luck with the use of 5 mg of cyclobenzaprine. She has worsening pain and she has had prior luck with use of trigger point injection. She has had her last trigger point injection in April of last year. Done here in the emergency department. Her history is taken through a sign booth manager over the Internet. Review of Systems Constitutional: denies: Fever Eyes: denies: Decreased vision Ears: denies: Ear pain Nose: denies: Congestion Throat: denies: Sore throat Cardiac: denies: Chest pain / pressure, Palpitations Respiratory: denies: Dyspnea, Cough GI: denies: Abdominal Pain, Nausea, Vomiting : denies: Dysuria, Frequency PD PAST MEDICAL HISTORY - Past Medical History Cardiovascular: Hypertension, High cholesterol Endocrine/Autoimmune: Type 2 diabetes : Kidney stones Psych: None Musculoskeletal: Osteoarthritis, Fibromyalgia, Rheumatoid arthritis - Past Surgical History Past Surgical History: Yes General: Appendectomy Ortho: Knee replacement /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: section HEENT: Cochlear implant - Present Medications Home Medications: Ambulatory Orders Medication Instructions Recorded Confirmed Atorvastatin [Lipitor] 10 mg DAILY 09/05/15 09/10/16 Cholecalciferol [Vitamin D3] 1,000 unit DAILY 09/05/15 09/10/16 Cyclobenzaprine [Flexeril] 10 mg DAILY 09/05/15 09/10/16 Etodolac [Etodolac ER] 400 mg PO DAILY 09/05/15 09/10/16 Flaxseed Oil [[place]-3 Flaxseed Oil] 1,400 mg DAILY 09/05/15 09/10/16 Losartan [Cozaar] 25 mg DAILY 09/05/15 09/10/16 Multivit-Min/Iron Fum/Folic AC 1 tab DAILY 09/05/15 09/10/16 [Nkrzn-Myvdfnp-Rfnwwnhj Tablet] Omeprazole [PriLOSEC] 20 mg PO DAILY 09/05/15 09/10/16 Cyclobenzaprine [Flexeril] 10 mg PO TID PRN #20 tablet 04/16/18 Hydrocodone/Acetaminophen 1 - 2 each PO Q6H PRN #14 tablet 04/16/18 [Hydrocodon-Acetaminophen 5-325] Erythromycin Base [Erythromycin 1 gm OP TID 7 Days #1 oint...g. 07/06/18 Ophthalmic Ointment] Hydrocodone/Acetaminophen 1 - 2 each PO Q6H PRN #14 tablet 01/09/19 [Hydrocodon-Acetaminophen 5-325] - Allergies Allergies/Adverse Reactions: Allergies Allergy/AdvReac Type Severity Reaction Status Date / Time acetaminophen Allergy Unknown Verified 07/06/18 13:55 [From Darvocet-N] meperidine HCl * Allergy Unknown Verified 07/06/18 13:55 [From Demerol] Penicillins Allergy Unknown Verified 07/06/18 13:55 povidone-iodine Allergy Unknown Verified 07/06/18 13:55 [From Betadine] propoxyphene napsylate * Allergy Unknown Verified 07/06/18 13:55 [From Darvocet-N] soap [From Betadine] Allergy Unknown Verified 07/06/18 13:55 Sulfa (Sulfonamide Allergy Unknown Verified 07/06/18 13:55 Antibiotics) bandaids Allergy Unknown Uncoded 07/06/18 13:55 dermabond Allergy Unknown Uncoded 07/06/18 13:55 surgical tape Allergy Unknown Uncoded 07/06/18 13:55 - Social History Does the pt smoke?: No Smoking Status: Never smoker Does the pt drink ETOH?: No Does the pt have substance abuse?: No - Immunizations Immunizations are current?: Yes - POLST Patient has POLST: No PD ED PE NORMAL - Vitals Vital signs reviewed: Yes (tachy and hypertensive ) - General General: No acute distress, Well developed/nourished - HEENT HEENT: Atraumatic, PERRL, EOMI - Neck Neck: Supple, no meningeal sign, No bony TTP - Cardiac Cardiac: RRR, No murmur - Respiratory Respiratory: No respiratory distress, Clear bilaterally, Other (There is an area over the left lower rhomboid area with specific point tenderness identified by the paitent as the trigger point. ) - Abdomen Abdomen: Soft, Non tender - Back Back: No CVA TTP, No spinal TTP - Derm Derm: Normal color, Warm and dry, No rash - Extremities Extremities: No deformity, No edema - Neuro Neuro: Alert and oriented X 3, clinical assessment manager 2-12 intact, No motor deficit, No sensory deficit Eye Opening: Spontaneous Motor: Obeys Commands Verbal: Oriented GCS Score: 15 - Psych Psych: Normal mood, Normal affect Results - Vitals Vitals: Vital Signs - 24 hr 01/09/19 13:32 Temperature 36.3 C L Heart Rate 103 H Respiratory 18 Rate Blood Pressure 142/119 H O2 Saturation 99 Oxygen O2 Source Room air Procedures - General procedure General procedure: Trigger point joint injection: With use of 6 mL's of a mixture of 5 oh mils of bupivacaine and 1 mL of 40 mg/mL Kenalog the patient is injected over the trigger point in a fanned out fashion and following this the area is massaged to distribute the medication. The injection is done into the subcutaneous tissue and muscle and the patient tolerates this well. Trigger point is located at the inferior portion of the rhomboid muscles on the left side. PD MEDICAL DECISION MAKING - ED course Complexity details: re-evaluated patient, considered differential, d/w patient, d/w family ED course: 63-year-old female with a history of rhomboid muscle spasm has had improvement with trigger point injection and requests this treatment. She has not had improvement with Flexeril. She indicates that previously with treatment given here she had resolution of her symptoms. She is treated similarly today. Her history is taken through a sign booth manager. Departure - Departure Disposition: 01 Home, Self Care Clinical Impression: Back spasm Condition: Stable Instructions: ED Spasm Back No Trauma Follow-Up: YOSEF TSANG MD [Primary Care Provider] - Prescriptions: Hydrocodone/Acetaminophen [Hydrocodon-Acetaminophen 5-325] 1 - 2 each PO Q6H PRN #14 tablet PRN Reason: pain
[2019-01-09] MEDS ORDERED: BUPIVACAINE 0.5% PF 10 ML VIAL SUBQ STA (16:23)
[2019-01-09] MEDS ORDERED: TRIAMCINOLONE 40 MG/ML VIAL IM STA (16:24)
[2019-01-09 17:05] VITALS: BP 148/99
== END 2019-01-09 17:04 | disposition home or self-care (01) ==
LOC: ED 13:21
DX: M62.830 Muscle spasm of back (principal); M54.6 Pain in thoracic spine; I10 Essential (primary) hypertension; E11.9 Type 2 diabetes mellitus without complications; H91.90 Unspecified hearing loss, unspecified ear
CPT/HCPCS: 20552

== ENCOUNTER 2019-06-05 15:12 | Emergency (ER) | payer MEDICARE, MEDICAID ==
[2019-06-05 15:29] VITALS: BP 174/90
[2019-06-05] MEDS ORDERED: oxyCODONE 5 MG TABLET PO STA (15:47)
--- NOTE | 2019-06-05 15:47 | ED Physician Documentation ---
History of Present Illness - Stated complaint Stated Complaint: NECK - Chief complaint Chief Complaint: Heent - Additonal information Additional information: This is a 63-year-old female with a history of deafness status post cochlear implant, history of rheumatoid arthritis, osteoarthritis, on Humira, who presents with neck pain. 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 She always has joint pain and has had neck pain before as well, but her neck pain has been worsened starting 4 weeks ago in the absence of trauma. She states that it began worsening out of the blue and is from the base of her neck down to around the region of C7. It sometimes is worse when she just sitting still, when she is up and moving around and it feels a bit better. She has tried Tylenol and this does not seem to help. She denies any fever, no numbness, weakness, bowel or bladder changes. No vision change, facial droop. Review of Systems Constitutional: denies: Fever Nose: denies: Rhinorrhea / runny nose Throat: denies: Sore throat Cardiac: denies: Chest pain / pressure Respiratory: denies: Dyspnea GI: denies: Vomiting Musculoskeletal: reports: Other (Neck pain) Neurologic: denies: Focal weakness, Numbness Immunocompromised: reports: Other (On Humira) PD PAST MEDICAL HISTORY - Past Medical History Cardiovascular: Hypertension, High cholesterol Endocrine/Autoimmune: Type 2 diabetes : Kidney stones Psych: None Musculoskeletal: Osteoarthritis, Fibromyalgia, Rheumatoid arthritis - Past Surgical History Past Surgical History: Yes General: Appendectomy Ortho: 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 HEENT: Cochlear implant - Present Medications Home Medications: Ambulatory Orders Medication Instructions Recorded Confirmed Atorvastatin [Lipitor] 10 mg DAILY 09/05/15 09/10/16 Cholecalciferol [Vitamin D3] 1,000 unit DAILY 09/05/15 09/10/16 Cyclobenzaprine [Flexeril] 10 mg DAILY 09/05/15 09/10/16 Etodolac [Etodolac ER] 400 mg PO DAILY 09/05/15 09/10/16 Flaxseed Oil [[place]-3 Flaxseed Oil] 1,400 mg DAILY 09/05/15 09/10/16 Losartan [Cozaar] 25 mg DAILY 09/05/15 09/10/16 Multivit-Min/Iron Fum/Folic AC 1 tab DAILY 09/05/15 09/10/16 [Wtaea-Qpzvgkq-Fqpntpjf Tablet] Omeprazole [PriLOSEC] 20 mg PO DAILY 09/05/15 09/10/16 Cyclobenzaprine [Flexeril] 10 mg PO TID PRN #20 tablet 04/16/18 Hydrocodone/Acetaminophen 1 - 2 each PO Q6H PRN #14 tablet 04/16/18 [Hydrocodon-Acetaminophen 5-325] Erythromycin Base [Erythromycin 1 gm OP TID 7 Days #1 oint...g. 07/06/18 Ophthalmic Ointment] Hydrocodone/Acetaminophen 1 - 2 each PO Q6H PRN #14 tablet 01/09/19 [Hydrocodon-Acetaminophen 5-325] Lidocaine Patch 5% [Lidoderm Patch] 1 each TOP DAILY PRN #7 patch 06/05/19 methocarbamoL [Methocarbamol] 500 mg PO TID PRN #30 tablet 06/05/19 - Allergies Allergies/Adverse Reactions: Allergies Allergy/AdvReac Type Severity Reaction Status Date / Time acetaminophen Allergy Unknown Verified 06/05/19 15:25 [From Darvocet-N] meperidine HCl * Allergy Unknown Verified 06/05/19 15:25 [From Demerol] Penicillins Allergy Unknown Verified 06/05/19 15:25 povidone-iodine Allergy Unknown Verified 06/05/19 15:25 [From Betadine] propoxyphene napsylate * Allergy Unknown Verified 06/05/19 15:25 [From Darvocet-N] soap [From Betadine] Allergy Unknown Verified 06/05/19 15:25 Sulfa (Sulfonamide Allergy Unknown Verified 06/05/19 15:25 Antibiotics) bandaids Allergy Unknown Uncoded 06/05/19 15:25 dermabond Allergy Unknown Uncoded 06/05/19 15:25 surgical tape Allergy Unknown Uncoded 06/05/19 15:25 - Social History Does the pt smoke?: No Smoking Status: Never smoker Does the pt drink ETOH?: No Does the pt have substance abuse?: No - Immunizations Immunizations are current?: Yes - POLST Patient has POLST: No PD ED PE NORMAL - Vitals Vital signs reviewed: Yes - General General: Alert and oriented X 3, No acute distress - HEENT HEENT: Atraumatic, PERRL - Neck Neck: Other (Excellent ROM. Mild midline tenderness from C3-C7, no step offs, crepitus, deformities.) - Cardiac Cardiac: RRR - Respiratory Respiratory: No respiratory distress, Clear bilaterally - Abdomen Abdomen: Non distended - Derm Derm: Warm and dry - Neuro Neuro: Alert and oriented X 3, No motor deficit, No sensory deficit - Psych Psych: Normal mood, Normal affect Results - Vitals Vitals: Vital Signs - 24 hr 06/05/19 15:26 Temperature 36.5 C Heart Rate 87 Respiratory 14 Rate Blood Pressure 174/90 H O2 Saturation 96 Oxygen O2 Source Room air - Rads (name of study) CT C-spine WO Radiology: Other (Degenerative changes without acute fracture, dislocation, or other bony abnormality) PD MEDICAL DECISION MAKING - ED course Complexity details: considered differential (Arthritis, fracture, compression/pathologic fracture, infection, disc disease, metastatic lesion, mass) ED course: Pt is well appearing with normal ROM of neck on exam. She has had no fever, has no neurologic symptoms, and the fact that her symptoms have been ongoing 4 weeks makes acute infectious process or unstable fracture highly unlikely. Given her midline pain and medical history, CT of the neck was obtained and showed degenerative changes without other acute cause of her pain. I discussed these results with the patient. She has a lot of chronic pain from her osteoarthritis and RA and is already on a good regimen of non-narcotic medications. After discussion with her, we will try methocarbamol in place of her flexeril, and will add lidocaine patches as well. She will follow with her PCP. I discussed return precautions and she was discharged in the care of her partner. Departure - Departure Disposition: 01 Home, Self Care Clinical Impression: Neck pain Condition: Good Instructions: ED Neck Pain No Trauma Prescriptions: Lidocaine Patch 5% [Lidoderm Patch] 1 each TOP DAILY PRN #7 patch PRN Reason: Pain methocarbamoL [Methocarbamol] 500 mg PO TID PRN #30 tablet PRN Reason: Pain Comments: You were seen today for neck pain. The scan of your neck shows arthritis, but no broken bones or other obvious cause of your pain at this time. Please try the lidocaine patches. You may also try the methocarbamol, which is a muscle relaxant type medication, which can also be helpful in some types of bone related pain. I am starting you on a low-dose of the methocarbamol, this dose can be increased if needed in the future, preferably by your primary care provider. I would not combine methcarbamol with cyclobenzaprine, as they can both be somewhat sedating. If you are having new or worsening symptoms, particularly signs of infection such as fever, return to the emergency department immediately Discharge Date/Time: 06/05/19 17:23
--- NOTE | 2019-06-05 16:19 | CT Report ---
Reason: Neck pain for 4 weeks, worsening, atraumatic Procedure Date: 06/05/2019 Accession Number: [id number] / [id number] Procedure: CT - CERVICAL SPINE WO CPT Code: Final Report FULL RESULT: EXAM: CT CERVICAL SPINE WITHOUT CONTRAST DATE: 06/05/2019 04:03 PM. HISTORY: 63-year-old female. Neck pain for 4 weeks, worsening, atraumatic. COMPARISONS: None. TECHNIQUE: Thin-section axial images were acquired of the cervical spine without contrast. Post-processing: Coronal and sagittal reformats. Other: None. In accordance with CT protocol optimization, one or more of the following dose reduction techniques were utilized for this exam: automated exposure control, adjustment of mA and/or KV based on patient size, or use of iterative reconstructive technique. FINDINGS: Alignment: Grade 1 anterolisthesis C7 on T1 measuring 2 mm. Grade 1 anterolisthesis T1 and T2 measuring 2 mm. Bones: No fracture or bone lesion. Interspace Levels/Facets: C1-C2: Unremarkable. C2-C3: Unremarkable. C3-C4: Small posterior disk osteophyte complex. No significant central canal narrowing. No bony foraminal narrowing. C4-C5: Moderate disk height loss. Small posterior disk osteophyte complex. Mild bilateral facet arthropathy. Mild central canal narrowing. Mild bilateral foraminal narrowing. C5-C6: Small posterior disk osteophyte complex. Moderate right and mild to moderate left facet arthropathy. Moderate bilateral uncovertebral spurring. Mild central canal narrowing. Mild to moderate left and mild right foraminal narrowing. C6-C7: Moderate to severe disk height loss. Moderate posterior disk osteophyte complex. Moderate bilateral uncovertebral spurring. Mild bilateral facet arthropathy. Mild central canal narrowing. Mild left foraminal narrowing. No right foraminal narrowing. C7-T1: Unremarkable. Musculature: Normal. No fatty atrophy. Other: Bilateral cochlear implants and mastoidectomies. Mild mucosal thickening but no sphenoid sinuses. The paravertebral and prevertebral soft tissues are unremarkable. The lung apices are clear. IMPRESSION: 1. No evidence of acute fracture or traumatic subluxation. No prevertebral soft tissue swelling. 2. Mild to moderate multilevel degenerative spondylosis, as detailed above. RADIA
== END 2019-06-05 17:23 | disposition home or self-care (01) ==
LOC: ED 15:12
DX: M54.2 Cervicalgia (principal); I10 Essential (primary) hypertension; E11.9 Type 2 diabetes mellitus without complications
CPT/HCPCS: 72125; 99284; A9270

== ENCOUNTER 2020-02-05 09:26 | Outpatient (CLI) | payer MEDICARE, MEDICAID ==
--- NOTE | 2020-02-05 10:07 | XRAY Report ---
PROCEDURE: Wrist 4 View LT INDICATIONS: LEFT WRIST PAIN TECHNIQUE: 4 views of the wrist were acquired. COMPARISON: None FINDINGS: Bones: No fractures or dislocations. No suspicious bony lesions. Scaphoid view: No trauma to the scaphoid is found. Soft tissues: No suspicious soft tissue calcifications. IMPRESSION: No trauma found, minimal degenerative osteoarthritis is noted at the base of the first metacarpal. Ov erall, a source of new pain is not identified. Reviewed by: Ernie Morales MD on 02/05/2020 10:06 AM PDT Approved by: Ernie Morales MD on 02/05/2020 10:06 AM PDT Station ID: [id number]
== END 2020-02-05 23:59 | disposition home or self-care (01) ==
LOC: DI.WCP 09:26
PROVIDERS: ATTEND Physician Assistant
DX: M25.532 Pain in left wrist (principal); M19.042 Primary osteoarthritis, left hand